=== PATIENT | female | born 1975 | race African-American/Black ===

== ENCOUNTER 2017-05-08 06:00 | Day surgery (SDC) | payer OTHER ==
[~2017-05-08] VITALS: Ht 160 cm; Wt 155.0 kg
[~2017-05-08 06:00] MED LIST: CENTRUM ULTRA1 EAC1 PO; MOBIC15 MG PO; NAPROSYN500 MG PO; ONCE DAILY1 EACH PO; PHENTERMINE HCL15 MG PO; PROZAC10 MG PO; ULTRAM50 MG PO; VALIUM5 MG PO; VITAMIN473 ML PO
[2017-05-08 06:16] VITALS: BP 110/63
[2017-05-08 10:20] VITALS: BP 136/86
[2017-05-08 11:16] VITALS: BP 127/69
== END 2017-05-08 11:32 | disposition home or self-care (01) ==
LOC: SDC 06:00
DX: N92.1 Excessive and frequent menstruation with irregular cycle (principal); E66.01 Morbid (severe) obesity due to excess calories; Z68.44 Body mass index [BMI] 60.0-69.9, adult; F41.8 Other specified anxiety disorders; R73.03 Prediabetes
CPT/HCPCS: 88305; J0330; J0690; J1100; J1170; J1885; J2250; J2405; J3010

== ENCOUNTER 2017-08-18 00:55 | Emergency (ER) | payer OTHER ==
[~2017-08-18] VITALS: Ht 160 cm; Wt 158.9 kg
[2017-08-18] MEDS ORDERED: MEDROL DOSEPAK4 MG PO (01:32)
[2017-08-18] MEDS ORDERED: FLEXERIL10 MG PO (01:32)
[2017-08-18 02:17] VITALS: BP 129/76
== END 2017-08-18 01:57 | disposition home or self-care (01) ==
LOC: EME 00:55
DX: M79.602 Pain in left arm (principal); S46.912A Strain of unspecified muscle, fascia and tendon at shoulder and upper arm level, left arm, initial encounter; M54.6 Pain in thoracic spine; X58.XXXA Exposure to other specified factors, initial encounter; Y93.B9 Activity, other involving muscle strengthening exercises
CPT/HCPCS: 99281; 99284; J1885; J7512